=== PATIENT | male | born 1955 | race Caucasian/White ===

== ENCOUNTER 2018-10-23 16:40 | Emergency (ER) | payer OTHER ==
[2018-10-23 17:09] VITALS: BP 122/87; PULSE 107; TEMP 98; BMI 35.3
--- NOTE | 2018-10-23 17:09 | PDOC ---
Rapid Medical Evaluation Time Seen by Provider: 10/23/18 17:06 Medical Evaluation: Allergies Allergy/AdvReac Type Severity Reaction Status Date / Time No Known Allergies Allergy Verified 03/24/14 09:09 10/23/18 17:06 I performed a brief in-person evaluation of this patient. Chief complaint: Being treated with amox/flonase for sinus infection, pain not improving Pertinent physical exam findings: Right frontal and maxillary sinus tenderness, nasal congestion I have ordered the following: None Patient will proceed to the ED for further evaluation. Discharge Disposition - Diagnosis Sinus infection - Referrals - Patient Instructions - Post Discharge Activity
[2018-10-23] MEDS ORDERED: KETOROLAC TROMETHAMINE 30 MG/1 ML VIAL IM ONE (19:07)
[2018-10-23] MEDS ORDERED: KETOROLAC TROMETHAMINE 30 MG/1 ML VIAL ONE (19:08)
--- NOTE | 2018-10-23 19:13 | PDOC ---
History of Present Illness - General Chief Complaint: Headache Stated Complaint: SINUS INFECTION Time Seen by Provider: 10/23/18 17:06 History Source: Patient Exam Limitations: Clinical Condition - History of Present Illness Initial Comments: 10/23/18 19:08 Patient with history of hypertension present with complaint of 2 weeks history of headache, nasal congestion, sinus pain. Patient reported he was seen by urgent care and week ago and was given amoxicillin antibiotics with Flovent nasal spray with no improvement. Patient denies dizziness, nausea, vomiting or lightheadedness. Denies any other symptoms Timing/Duration: other (2 weeks) Past History - Past Medical History Allergies/Adverse Reactions: Allergies Allergy/AdvReac Type Severity Reaction Status Date / Time No Known Allergies Allergy Verified 10/23/18 17:09 Home Medications: Ambulatory Orders Digoxin [Lanoxin -] 0.125 mg PO DAILY #30 tablet 03/26/14 Enalapril Maleate [Vasotec -] 5 mg PO DAILY #30 tablet 03/26/14 Metoprolol Tartrate [Lopressor -] 50 mg PO BID #14 tablet 03/26/14 Warfarin Na [Coumadin -] 5 mg PO DAILY@1800 #30 tablet 03/26/14 Ipratropium Maria Stein 2 spray NS BID PRN #1 spray 10/23/18 Methylprednisolone [Medrol Dose Tay] 4 mg PO ASDIR #21 tablet 10/23/18 levoFLOXacin [Levaquin -] 500 mg PO DAILY #7 tablet 10/23/18 Cardiac Disorders: Yes (afib, non-compliant with coumadin) COPD: No HTN: Yes Hypercholesterolemia: Yes Psychiatric Problems: Yes (depression) - Surgical History Abdominal Surgery: Yes (sigmoid colon) - Immunization History Immunization Up to Date: Yes - Suicide/Smoking/Psychosocial Hx Smoking History: Never smoked Have you smoked in the past 12 months: No Information on smoking cessation initiated: No Hx Alcohol Use: No Drug/Substance Use Hx: No Review of Systems - Review of Systems Able to Perform ROS?: Yes Is the patient limited [place]i proficient: No Constitutional: No: Chills, Fever HEENTM: Yes: Symptoms Reported, See HPI, Nose Congestion, Other (sinus pain). No: Eye Pain, Blurred Vision, Tearing, Recent change in vision, Double Vision, Cataracts, Ear Pain, Ocular Prothesis, Ear Discharge, Nose Pain, Tinnitus, Nose Bleeding, Hearing Loss, Throat Pain, Throat Swelling, Mouth Pain, Dental Problems, Difficulty Swallowing, Mouth Swelling Respiratory: No: Symptoms reported, See HPI, Cough, Orthopnea, Shortness of Breath, SOB with Exertion, SOB at Rest, Stridor, Wheezing, Productive cough, Hemoptysis, Other Cardiac (ROS): No: Symptoms Reported, See HPI, Chest Pain, Edema, Irregular Heart Rate, Lightheadedness, Palpitations, Syncope, Chest Tightness, Other ABD/GI: No: Nausea, Vomiting Neurological: Yes: Headache (sinus pressure). No: Dizziness All Other Systems: Reviewed and Negative *Physical Exam - Vital Signs Last Vital Signs Temp Pulse Resp BP Pulse Ox 98.0 F 107 H 17 122/87 98 10/23/18 17:05 10/23/18 17:05 10/23/18 17:05 10/23/18 17:05 10/23/18 17:05 - Physical Exam Comments: 10/23/18 19:10 GENERAL: Well developed, well nourished. Awake and alert. No acute distress. HEENT: Moderate subjective tenderness to bilateral maxillary sinus with mild tenderness to frontal sinus. Normocephalic, atraumatic. PERRLA, EOMI. No conjunctival pallor. Sclera are non-icteric. Moist mucous membranes. Oropharynx is clear. NECK: Supple. Full ROM. CARDIOVASCULAR: Regular rate and rhythm. No murmurs, rubs, or gallops. Distal pulses are 2+ and symmetric. PULMONARY: No evidence of respiratory distress. Lungs clear to auscultation bilaterally. No wheezing, rales or rhonchi. ABDOMINAL: Soft. Non-tender. Non-distended. No rebound or guarding. No organomegaly. Normoactive bowel sounds. MUSCULOSKELETAL Normal range of motion at all joints. SKIN: Warm and dry. Normal capillary refill. No rashes. No jaundice. NEUROLOGICAL: Alert, awake, appropriate. Gait is normal without ataxia. PSYCHIATRIC: Cooperative. Good eye contact. Appropriate mood General Appearance: Yes: Nourished, Appropriately Dressed. No: Apparent Distress Moderate Sedation - Procedure Monitoring Vital Signs: Procedure Monitoring Vital Signs Temperature 98.0 F 10/23/18 17:05 Pulse Rate 107 H 10/23/18 17:05 Respiratory Rate 17 10/23/18 17:05 Blood Pressure 122/87 10/23/18 17:05 O2 Sat by Pulse Oximetry (%) 98 10/23/18 17:05 Medical Decision Making - Medical Decision Making 10/23/18 19:12 Patient presented with complaint of 2 weeks history of sinus pain, headache, nasal congestion and runny nose which has not been improving with a week of amoxicillin antibiotics and Flovent nasal spray. Exam significant for moderate subjective tenderness to bilateral maxillary sinus with mild tenderness frontal sinus otherwise unremarkable exam. Patient is stable for outpatient management for sinusitis with Medrol Tay, Levaquin and Atrovent nasal spray with ENT follow-up. *DC/Admit/Observation/Transfer Diagnosis at time of Disposition: Sinus infection Qualifiers: Sinusitis location: maxillary Chronicity: acute Recurrence: non-recurrent Qualified Code(s): J01.00 - Acute maxillary sinusitis, unspecified - Discharge Dispostion Disposition: HOME Condition at time of disposition: Stable Decision to Admit order: No - Prescriptions Prescriptions: Ipratropium Maria Stein 2 spray NS BID PRN #1 spray PRN Reason: nasal congestion levoFLOXacin [Levaquin -] 500 mg PO DAILY #7 tablet Methylprednisolone [Medrol Dose Tay] 4 mg PO ASDIR #21 tablet - Referrals Referrals: Karen Manriquez MD [Primary Care Provider] - - Patient Instructions Printed Discharge Instructions: Sinusitis Additional Instructions: Take medication as prescribed. Increase fluid intake. Follow-up with ENT if symptoms does not improve in 5 days. - Post Discharge Activity
== END 2018-10-23 19:27 | disposition home or self-care (01) ==
LOC: JERFT 16:40
DX: J01.00 Acute maxillary sinusitis, unspecified (principal); I10 Essential (primary) hypertension; E78.00 Pure hypercholesterolemia, unspecified; I48.91 Unspecified atrial fibrillation; Z79.01 Long term (current) use of anticoagulants; Z91.14 Patient's other noncompliance with medication regimen; F32.9 Major depressive disorder, single episode, unspecified
CPT/HCPCS: 99281-25

== ENCOUNTER 2018-10-28 14:51 | Emergency (ER) | payer OTHER ==
--- NOTE | 2018-10-28 15:08 | PDOC ---
Rapid Medical Evaluation Medical Evaluation: Allergies Allergy/AdvReac Type Severity Reaction Status Date / Time No Known Allergies Allergy Verified 10/23/18 17:09 I have performed a brief in-person evaluation of this patient. The patient presents with a chief complaint of: C/O frontal NGUYEN, sinus pain, dizziness x 3 weeks; was seen last week for sinusitis and discharged on Levaquin and Prednisone, but states not helping; +postnasal drip, mild congestion; denies fever, cough, vomiting Pertinent physical exam findings: In NAD, +B/L frontal and maxillary sinus TTP, no purulent nasal drainage, oropharynx clear I have ordered the following: labs, ct sinus The patient will proceed to the ED for further evaluation. 10/28/18 15:04
[2018-10-28 15:10] VITALS: BMI 35.3
[2018-10-28 15:36] LABS: BASO % 0.7 % (0-2.0); EOS % 0.8 % (0-4.5); HEMATOCRIT 41.9 % (35.4-49); HEMOGLOBIN 14.3 GM/dL (11.7-16.9); LYMPH % 28.5 % (8-40); MCH 27.9 pg (25.7-33.7); MCHC 34.3 g/dl (32.0-35.9); MEAN CELL VOLUME 81.5 fl (80-96); MEAN PLT VOLUME 7.6 fl (7.5-11.1); MONO % 6.5 % (3.8-10.2); NEUT % 63.5 % (42.8-82.8); PLATELET COUNT 277 K/MM3 (134-434); RBC 5.14 M/mm3 (4.00-5.60); RDW 15.6 % (11.9-15.9); WHITE BLOOD COUNT 13.4 K/mm3 (4.0-10.0)
--- NOTE | 2018-10-28 16:12 | PDOC ---
History of Present Illness - General Chief Complaint: Respiratory Stated Complaint: DIZZINESS Time Seen by Provider: 10/28/18 15:04 History Source: Patient - History of Present Illness Timing/Duration: reports: other Past History - Past Medical History Allergies/Adverse Reactions: Allergies Allergy/AdvReac Type Severity Reaction Status Date / Time No Known Allergies Allergy Verified 10/23/18 17:09 Home Medications: Ambulatory Orders levoFLOXacin [Levaquin -] 500 mg PO DAILY #7 tablet 10/23/18 Atorvastatin Ca [Lipitor] 40 mg PO HS 10/28/18 Diltiazem [Cardizem -] 120 mg PO DAILY 10/28/18 Meclizine HCl [Antivert -] 25 mg PO QID #28 tablet 10/28/18 Metoprolol Tartrate [Lopressor -] 100 mg PO DAILY 10/28/18 Warfarin Na [Coumadin -] 2.5 mg PO DAILY@1800 10/28/18 Cardiac Disorders: Yes (afib, non-compliant with coumadin) COPD: No HTN: Yes Hypercholesterolemia: Yes Psychiatric Problems: Yes (depression) - Surgical History Abdominal Surgery: Yes (sigmoid colon) - Immunization History Immunization Up to Date: Yes - Suicide/Smoking/Psychosocial Hx Smoking History: Never smoked Have you smoked in the past 12 months: No Hx Alcohol Use: No Drug/Substance Use Hx: No Review of Systems - Review of Systems Constitutional: No: Chills, Fever HEENTM: Yes: Nose Pain, Nose Congestion. No: Ear Pain Respiratory: No: Cough Neurological: Yes: Headache. No: Tingling *Physical Exam - Vital Signs Last Vital Signs Temp Pulse Resp BP Pulse Ox 97.8 F 68 20 117/93 98 10/28/18 15:05 10/28/18 15:05 10/28/18 15:05 10/28/18 15:05 10/28/18 15:05 - Physical Exam General Appearance: Yes: Appropriately Dressed, Apparent Distress HEENT: positive: Normal ENT Inspection, Normal Voice, TMs Normal, Pharynx Normal. negative: Scleral Icterus (R), Scleral Icterus (L), Sinus Tenderness Neck: positive: Supple. negative: Lymphadenopathy (R), Lymphadenopathy (L) Integumentary: positive: Dry, Warm Neurologic: positive: Fully Oriented, Alert, Normal Mood/Affect Moderate Sedation - Procedure Monitoring Vital Signs: Procedure Monitoring Vital Signs Temperature 97.8 F 10/28/18 15:05 Pulse Rate 68 10/28/18 15:05 Respiratory Rate 20 10/28/18 15:05 Blood Pressure 117/93 10/28/18 15:05 O2 Sat by Pulse Oximetry (%) 98 10/28/18 15:05 ED Treatment Course - LABORATORY CBC & Chemistry Diagram: 10/28/18 15:26 10/28/18 15:26 - ADDITIONAL ORDERS Additional order review: Laboratory Results 10/28/18 15:26 Sodium Cancelled Potassium Cancelled Chloride Cancelled Carbon Dioxide Cancelled Anion Gap Cancelled BUN Cancelled Creatinine Cancelled Creat Clearance w eGFR Cancelled Random Glucose Cancelled Calcium Cancelled 10/28/18 15:26 RBC 5.14 MCV 81.5 MCHC 34.3 RDW 15.6 MPV 7.6 Neutrophils % 63.5 Lymphocytes % 28.5 D Monocytes % 6.5 Eosinophils % 0.8 Basophils % 0.7 Medical Decision Making - Medical Decision Making 10/28/18 16:12 62 yo M, afib on coumadin, HTN, VINICIUS and has been using nasal pillows for 4 months now, presents with ongoing nasal pressure, pain with frontal headache 3 weeks. Seen at an urgent care center 3 weeks ago and started on amoxicillin and flovent nasal spray, but states symptoms persisted, so was seen in the ER at [facility] 1 week ago and started on medrol dosepak, levaquin and atrovent nasal spray, which he completed but returns today with ongoing symptoms. No nasal discharge, dental pain, fever, chills, dizziness, visual changes, n/v. Given ENT referral but has not yet f/u See exam Unlikely acute sinusitis, possible nasal irritation from dental plugs used for VINICIUS No improvement w/ multiple courses of abx and steroids -labs and CT pending from triage 10/28/18 17:06 WBC 13 on labs but suspect 2/2 recent course of steroids. CT read pending 10/28/18 18:38 CT read as as mild mucosal thickening of b/l ethmoid and maxillary sinuses, otherwise no acute pathology. Of note, patient's vacuum technician, Dr. Delgado, called to report that patient was seen by him today and was complaining of some vertiginous symptoms. Recommends I sent pt home on meclizine. Patient denies any dizziness at this time and no visual changes, nausea, vomiting, focal weakness, chest pain or shortness of breath and non-focal on exam. Prescription for small dose of meclizine given. Patient now informs me that he has since made an appointment with an ENT doctor for next week and will follow- up. Patient also told to follow-up with his PMD this week *DC/Admit/Observation/Transfer Diagnosis at time of Disposition: Nasal discomfort - Discharge Dispostion Disposition: HOME Condition at time of disposition: Good - Prescriptions Prescriptions: Meclizine HCl [Antivert -] 25 mg PO QID #28 tablet - Referrals Referrals: Rodrigue Hager MD [Staff Physician] - - Patient Instructions Additional Instructions: The cause of your symptoms are unclear, but possibly related to the nasal pillows used for your sleep apnea. Please follow-up with your ENT next week as scheduled Take meclizine for dizziness as needed Please follow up with your PMD this week - Post Discharge Activity
[2018-10-28 19:08] VITALS: BP 118/72; PULSE 71; TEMP 98.3
== END 2018-10-28 18:45 | disposition home or self-care (01) ==
LOC: JER 14:51
DX: J34.89 Other specified disorders of nose and nasal sinuses (principal); I10 Essential (primary) hypertension; G47.33 Obstructive sleep apnea (adult) (pediatric); I48.91 Unspecified atrial fibrillation; Z79.01 Long term (current) use of anticoagulants; Z91.19 Patient's noncompliance with other medical treatment and regimen
CPT/HCPCS: 36415; 70486-TC; 85025; 99283-25